=== PATIENT | female | born 2000 | race Caucasian/White ===

== ENCOUNTER 2023-11-07 09:56 | Emergency (ER) | payer OTHER ==
[2023-11-07] MEDS ORDERED: Rabies Immune Globulin/PF 300 UNITS/ML VIAL ONE (11:06)
[2023-11-07] MEDS ORDERED: Rabies Vaccine Human 2.5 UNITS VIAL ONE (11:06)
== END 2023-11-07 11:40 | disposition home or self-care (01) ==
LOC: ERS 09:56
DX: S81.852A Open bite, left lower leg, initial encounter (principal); W54.0XXA Bitten by dog, initial encounter; Z23 Encounter for immunization
CPT/HCPCS: 90375; 90471; 90675; 96372

== ENCOUNTER → 2023-11-10 | Day surgery (SDC) ==
[~2023-11-10] MED LIST: Rabies Vaccine Human 2.5 UNITS VIAL ONE
== END ==
LOC: ER/OP 10:13
DX: Z23 Encounter for immunization (principal)
CPT/HCPCS: 90675